=== PATIENT | female | born 1955 | race American Indian/Alaskan Native ===

== ENCOUNTER 2016-11-27 01:57 | Emergency (ER) | payer OTHER, MEDICAID ==
[2016-11-27 02:07] VITALS: TEMP 97.7
--- NOTE | 2016-11-27 02:14 | CPEKG ---
Heart Rate: 85 RR Interval: 706 P-R Interval: 152 QRSD Interval: 90 QT Interval: 376 QTC Interval: 447 P [place]: 43 QRS [place]: -24 T Wave [place]: 70 EKG Severity - BORDERLINE ECG - EKG Impression: SINUS RHYTHM EKG Impression: BORDERLINE LEFT AXIS DEVIATION EKG Impression: BORDERLINE T ABNORMALITIES, ANT-LAT LEADS Electronically Signed By: Brooklyn Cross 27-Nov-2016 06:37:27
[2016-11-27 02:44] LABS: % IMMATURE GRANULYOCYTES 0.3 % (0.0-1.1); ABSOLUTE IMMATURE GRANULOCYTES 0.02 10^3/uL (0.00-0.10); ADD DIFF? NO; ADD MORPH? NO; ADD SCAN? NO; ATYPICAL LYMPHOCYTE FLAG 10 (0-99); FRAGMENT RBC FLAG 0 (0-99); HEMATOCRIT 39.8 % (38.0-47.0); HEMOGLOBIN 13.8 g/dL (12.6-16.3); LEFT SHIFT FLG 0 (0-99); LIPEMIA HEMOLYSIS FLAG 90 (0-99); MEAN CELL HEMOGLOBIN CONCENTR. 34.7 g/dL (32.4-36.7); MEAN CELL VOLUME 92.3 fL (81.5-99.8); MEAN PLATELET VOLUME 9.5 fL (8.7-11.7); PLATELET CLUMPS FLAG 10 (0-99); PLATELET COUNT 242 10^3/uL (150-400); RED BLOOD CELL COUNT 4.31 10^6/uL (4.18-5.33); RED CELL DISTRIBUTION WIDTH 11.6 % (11.5-15.2)
[2016-11-27 03:02] LABS: ANION GAP 10 mEq/L (8-16); CALCIUM 9.1 mg/dL (8.5-10.4); CARBON DIOXIDE 26 mEq/l (22-31); CHLORIDE 106 mEq/L (97-110); CREATININE 0.6 mg/dL (0.6-1.0); GLOMERULAR FILTRATION RATE > 60; GLUCOSE 151 mg/dL (70-100); POTASSIUM 3.9 mEq/L (3.5-5.2); SODIUM 142 mEq/L (134-144)
[2016-11-27 03:13] LABS: TROPONIN I < 0.012 ng/mL (0-0.034)
--- NOTE | 2016-11-27 03:33 | EDPHY ---
H & P Stated Complaint: CP X1 HR WHILE LAYING DOWN, HTN RECENT,ROTATOR SURG 10/02/16 Time Seen by Provider: 11/27/16 02:24 HPI/ROS: HPI The patient presents with chest pain which began about 2 hours ago when she was trying to fall asleep in bed. This was a burning pain in her anterior chest which did not radiate and was constant. She feels the pain is related to her right rotator cuff injury, she is status post operation for this in September of 2016. She wears home oxygen for hypoxia of uncertain origin. But denies any new shortness of breath, nausea or vomiting, diaphoresis or dizziness. REVIEW OF SYSTEMS Constitutional: No fever, no chills. Eyes: No discharge. ENT: No sore throat. Cardiovascular: + chest pain, no palpitations. Respiratory: No cough, no shortness of breath. Gastrointestinal: No abdominal pain, no vomiting. Genitourinary: No hematuria. Musculoskeletal: No back pain. Skin: No rashes. Neurological: No headache. PMHx: Chronic pain, followed by pain specialist, traumatic brain injury with aphasia, hypoxia on home oxygen Soc Hx: Housed PHYSICAL General Appearance: Alert, no distress Eyes: Pupils equal and round no pallor or injection ENT, Mouth: Mucous membranes moist Respiratory: There are no retractions, lungs are clear to auscultation Cardiovascular: Regular rate and rhythm Gastrointestinal: Abdomen is soft and non-tender, no masses, bowel sounds normal Neurological: A&O, moves all extremities Skin: Warm and dry, no rashes Musculoskeletal: Neck is supple non tender Extremities: symmetrical, full range of motion Psychiatric: Patient is oriented X 3, there is no agitation Source: Patient Exam Limitations: No limitations - Personal History Current Tetanus/Diphtheria Vaccine: Yes Tetanus Vaccine Date: 2014 - Medical/Surgical History Hx Asthma: No Hx Chronic Respiratory Disease: Yes Hx Diabetes: No Hx Cardiac Disease: No Hx Renal Disease: No Hx Cirrhosis: No Hx Alcoholism: No Hx HIV/AIDS: No Hx Splenectomy or Spleen Trauma: No Other PMH: TRAUMATIC BRAIN INJURY, ABNORMAL EKG. TKR March 2015, L & R rotator cuff surgery. hypothyroid/holly's, APHASIA - Social History Smoking Status: Never smoked Constitutional: Initial Vital Signs Temperature (C) 36.5 C 11/27/16 02:04 Heart Rate 96 11/27/16 02:04 Respiratory Rate 18 11/27/16 02:04 Blood Pressure 129/86 H 11/27/16 02:04 O2 Sat (%) 93 11/27/16 02:04 O2 Delivery Mode Nasal Cannula O2 (L/minute) 3 Allergies/Adverse Reactions: amoxicillin Allergy (Verified 11/10/16 13:30) Hives ampicillin Allergy (Verified 11/10/16 13:30) Hives Penicillins Allergy (Verified 11/10/16 13:30) Hives ORAL ABX Allergy (Uncoded 03/04/16 16:29) Other-Enter Comments Home Medications: Medication Instructions Recorded Dextroamphetamine Sulfate 30 mg PO DAILY 10/23/14 Diazepam [Valium 10 MG (*)] 10 - 20 mg PO HS PRN 10/23/14 HYDROcodone/APAP 10/325 [[place] 1 tab PO Q6 PRN 10/23/14 10325 (*)] Venlafaxine HCl [Venlafaxine 75MG 75 mg PO DAILY 10/23/14 (*)] Thyroid [[place] Thyroid] 60 mg PO DAILY10 09/11/15 Estradiol Transdermal Patch 0.075 mg TD 03/04/16 Metformin 1000 mg 500 mg PO BID 03/04/16 Testosterone 03/04/16 Dilaudid 2 mg (*) 11/10/16 Hydrocodone/APAP 5/325 [[place] 1 - 2 tab PO Q4-6PRN PRN #10 tab 11/10/16 5/325 (*)] Ondansetron Odt [Zofran Odt 4 mg 4 mg PO Q4PRN PRN #10 tab 11/10/16 (*)] oxyCODONE/APAP 5/325 [Percocet 1 - 2 tab PO Q4-6PRN PRN #10 tab 11/10/16 5/325 (*)] Medical Decision Making - Diagnostics EKG Interpretation: EKG: Complete interpretation has been separately recorded in the [facility] [facility] archive. Summary impression: T-wave flattening in aVL, V3, unchanged from prior EKG Imaging: Chest x-ray two view interpreted by me shows no acute findings, radiology interpretation is pending. ED Course/Re-evaluation: In the emergency room, the patient's pain resolved after receiving a dose of morphine. Labs are unremarkable including a troponin. Her blood pressures remain normal. EKG was unremarkable and chest x-ray was also normal. I have a low suspicion of ACS and have told her this, however I have told her that she can follow up with her human resources representative to discuss further provocative testing such as nuclear stress test. I feel her pain is likely related to GERD. She will be discharged home. Differential Diagnosis: This is a 61-year-old female with recent rotator cuff injury, hypoxia on oxygen , history of TBI with aphasia who presents with chest pain for the last 2 hours while lying in bed with no associated features. On exam, her vital signs are unremarkable. Her exam is otherwise normal. She was told that her blood pressure was high by her physical therapist and this is concerned her. Differential diagnosis includes ACS, GERD, pericarditis, less likely pulmonary embolism given that her surgery was more than 6 weeks ago without any new shortness of breath and no tachycardia. - Data Points Laboratory Results: Laboratory Results 11/27/16 02:35 11/27/16 02:35 11/27/16 02:35 WBC 6.89 10^3/uL (3.80-9.50) RBC 4.31 10^6/uL (4.18-5.33) Hgb 13.8 g/dL (12.6-16.3) Hct 39.8 % (38.0-47.0) MCV 92.3 fL (81.5-99.8) MCH 32.0 pg (27.9-34.1) MCHC 34.7 g/dL (32.4-36.7) RDW 11.6 % (11.5-15.2) Plt Count 242 10^3/uL (150-400) MPV 9.5 fL (8.7-11.7) Neut % (Auto) 42.5 % (39.3-74.2) Lymph % (Auto) 47.9 H % (15.0-45.0) [place] % (Auto) 6.2 % (4.5-13.0) Eos % (Auto) 2.8 % (0.6-7.6) Baso % (Auto) 0.3 % (0.3-1.7) Nucleat RBC Rel Count 0.0 % (0.0-0.2) Absolute Neuts (auto) 2.93 10^3/uL (1.70-6.50) Absolute Lymphs (auto) 3.30 H 10^3/uL (1.00-3.00) Absolute Monos (auto) 0.43 10^3/uL (0.30-0.80) Absolute Eos (auto) 0.19 10^3/uL (0.03-0.40) Absolute Basos (auto) 0.02 10^3/uL (0.02-0.10) Absolute Nucleated RBC 0.00 10^3/uL (0-0.01) Immature Gran % 0.3 % (0.0-1.1) Immature Gran # 0.02 10^3/uL (0.00-0.10) Sodium 142 mEq/L (134-144) Potassium 3.9 mEq/L (3.5-5.2) Chloride 106 mEq/L (97-110) Carbon Dioxide 26 mEq/l (22-31) Anion Gap 10 mEq/L (8-16) BUN 14 mg/dL (7-23) Creatinine 0.6 mg/dL (0.6-1.0) Estimated GFR > 60 Glucose 151 H mg/dL (70-100) Calcium 9.1 mg/dL (8.5-10.4) Troponin I < 0.012 ng/mL (0-0.034) Medications Given: Discontinued Medications Morphine Sulfate (Morphine) 4 mg IVP Q4HRS PRN PRN Reason: Pain, Severe Unable to Take PO Stop: 12/07/16 02:41 Last Admin: 11/27/16 02:50 Dose: 4 mg Departure - Departure Disposition: Home, Routine, Self-Care Clinical Impression: Chest pain, Hypoxemia Condition: Good Instructions: Chest Pain (ED) Additional Instructions: Please follow-up with your human resources representative in the next 1-2 days. You should return to the emergency room if your chest pain continues or is worse in any way. Referrals: TANESHA CONDE [Primary Care Provider] - As per Instructions Anuj Odom MD [Medical Doctor] - As per Instructions
[2016-11-27 03:51] VITALS: BP 145/76; PULSE 86; RESP 16; O2SAT 98
--- NOTE | 2016-11-27 08:09 | DX ---
PA and Lateral Chest November 27, 2016, 0216 Clinical Indications: Chest pain. Comparison: October 24, 2014. Findings: The lungs are clear, and no masses are found. The heart and pulmonary vessels are normal. There are no pleural effusions and no pneumothorax. The bones are unremarkable for this age. Linea r scarring in the left midchest is stable compared to prior examination. Impression: Normal.
== END 2016-11-27 03:53 | disposition home or self-care (01) ==
DX: S29.9XXA Unspecified injury of thorax, initial encounter (principal); R09.02 Hypoxemia; W06.XXXA Fall from bed, initial encounter
CPT/HCPCS: 96374

== ENCOUNTER 2017-05-31 13:59 | Emergency (ER) | payer OTHER, MEDICAID ==
[2017-05-31 14:07] VITALS: TEMP 98.6
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
[2017-05-31] MEDS ORDERED: NS 500 ML IV ONE (14:19)
[2017-05-31] MEDS ORDERED: LORazepam 2 MG/ML INJ IVP ONE (14:19)
--- NOTE | 2017-05-31 14:27 | CPEKG ---
Heart Rate: 98 RR Interval: 612 P-R Interval: 164 QRSD Interval: 86 QT Interval: 348 QTC Interval: 445 P [place]: 52 QRS [place]: -30 T Wave [place]: 48 EKG Severity - BORDERLINE ECG - EKG Impression: SINUS RHYTHM EKG Impression: LEFT AXIS DEVIATION EKG Impression: CONSIDER ANTERIOR INFARCT EKG Impression: BORDERLINE T ABNORMALITIES, ANTERIOR LEADS Electronically Signed By: Aniyah Tamez 31-May-2017 15:05:57
[2017-05-31 14:28] LABS: % IMMATURE GRANULYOCYTES 0.4 % (0.0-1.1); ABSOLUTE IMMATURE GRANULOCYTES 0.03 10^3/uL (0.00-0.10); ADD DIFF? NO; ADD MORPH? NO; ADD SCAN? NO; ATYPICAL LYMPHOCYTE FLAG 0 (0-99); FRAGMENT RBC FLAG 0 (0-99); HEMATOCRIT 41.7 % (38.0-47.0); HEMOGLOBIN 14.6 g/dL (12.6-16.3); LEFT SHIFT FLG 0 (0-99); LIPEMIA HEMOLYSIS FLAG 90 (0-99); MEAN CELL HEMOGLOBIN 32.2 pg (27.9-34.1); MEAN CELL VOLUME 92.1 fL (81.5-99.8); PLATELET CLUMPS FLAG 0 (0-99); PLATELET COUNT 265 10^3/uL (150-400); RED BLOOD CELL COUNT 4.53 10^6/uL (4.18-5.33); RED CELL DISTRIBUTION WIDTH 11.7 % (11.5-15.2)
[2017-05-31 14:39] LABS: ANION GAP 16 mEq/L (8-16); CALCIUM 9.9 mg/dL (8.5-10.4); CARBON DIOXIDE 21 mEq/l (22-31); CHLORIDE 106 mEq/L (97-110); CREATININE 0.6 mg/dL (0.6-1.0); GLOMERULAR FILTRATION RATE > 60; GLUCOSE 117 mg/dL (70-100); POTASSIUM 4.3 mEq/L (3.5-5.2); SODIUM 143 mEq/L (134-144)
[2017-05-31 14:51] LABS: TROPONIN I < 0.012 ng/mL (0-0.034)
[2017-05-31] MEDS ORDERED: HYDROCODONE/APAP 5/325 TAB PO ONE (16:01)
[2017-05-31 17:01] VITALS: RESP 18; O2SAT 95
[2017-05-31 18:33] VITALS: BP 162/75; PULSE 92
== END 2017-05-31 18:40 | disposition home or self-care (01) ==
LOC: EDUNIT#
DX: R06.02 Shortness of breath (principal); M25.561 Pain in right knee; R20.0 Anesthesia of skin; G89.29 Other chronic pain
CPT/HCPCS: 70450; 71020; 93005; 93971; 96374; 99285; J2060

== ENCOUNTER → 2017-12-30 | Outpatient (CLI) | payer OTHER, MEDICAID | LOC: FIMAGING 11:49 | PROVIDERS: ATTEND Obstetrics & Gynecology | DX: Z12.31 Encounter for screening mammogram for malignant neoplasm of breast (principal); Z80.3 Family history of malignant neoplasm of breast ==

== ENCOUNTER → 2018-01-15 | Outpatient (CLI) | payer OTHER, MEDICAID | LOC: FIMAGING 12:44 | PROVIDERS: ATTEND Obstetrics & Gynecology | DX: N63.20 Unspecified lump in the left breast, unspecified quadrant (principal) ==

== ENCOUNTER → 2018-02-03 | Outpatient (CLI) | payer OTHER, MEDICAID ==
[~2018-02-03] MED LIST: BUPIVACAINE 0.5% 10 ML SDV ONE; LIDOCAINE 1% 300 MG/30 ML SDV ONE
== END ==
LOC: FIMAGING 08:25
PROVIDERS: ATTEND Obstetrics & Gynecology
PROC: 0HBU3ZX Excision of Left Breast, Percutaneous Approach, Diagnostic (ICD-10-PCS; principal; 2018-02-03)
DX: N60.92 Unspecified benign mammary dysplasia of left breast (principal); N60.32 Fibrosclerosis of left breast

== ENCOUNTER → 2018-12-31 | Outpatient (CLI) | payer OTHER, MEDICAID | LOC: FIMAGING 13:21 | PROVIDERS: ATTEND Obstetrics & Gynecology | DX: R92.0 Mammographic microcalcification found on diagnostic imaging of breast (principal) ==

== ENCOUNTER → 2019-04-12 | Outpatient (CLI) | payer OTHER, MEDICAID | LOC: FCPNEURO 22:54 | PROVIDERS: ATTEND Student in an Organized Health Care Education/Training Program | DX: G47.33 Obstructive sleep apnea (adult) (pediatric) (principal) ==